=== PATIENT | male | born 1950 | race Hispanic/Latino ===

== ENCOUNTER → 2025-01-25 11:42 | Outpatient (CLI) | payer MEDICARE, SELFPAY ==
--- NOTE | 2025-01-25 11:46 | DI.MRI.S_ITS ---
PROCEDURE: MR LUMBAR SPINE WO CON INDICATIONS: lumbar radiculopathy TECHNIQUE: Noncontrast sagittal T1 spin echo and T2 fast echo, sagittal STIR, and T2 fast spin echo through the lumbar spine. In cases with scoliosis, additional coronal T2 fast spin echo may be performed. COMPARISON: None. FINDINGS: Image quality: Excellent. Alignment and Curvature: There is normal bony alignment. Bone Marrow: Type 1 Modic changes at L5-S1. No acute vertebral body compression fractures. Spinal Cord: Conus medullaris terminates at the L2 level. Visualized cord demonstrates normal signal and size. Paraspinous Soft Tissues: No paravertebral masses. T12-L1: Normal appearance. L1-L2: Mild disc bulge. No spinal canal or foraminal stenosis. L2-L3: Posterior disc bulge and mild facet hypertrophy with mild spinal canal stenosis moderate right and mild left neural foraminal stenosis. L3-L4: Posterior disc bulge and facet hypertrophy with moderate bilateral neural foraminal stenosis and mild spinal canal stenosis. L4-L5: Posterior disc bulge and facet hypertrophy with moderate bilateral foraminal stenosis and mild spinal canal stenosis. L5-S1: Grade 1 anterolisthesis with bilateral L5 pars defects. Complete intervertebral disc height loss with grade 1 with Modic 1 end-plate changes. Pseudo disc bulge and facet hypertrophy with severe bilateral foraminal stenosis and mild spinal canal stenosis. IMPRESSION: Multilevel degenerative changes, most severe at L5-S1 where there is grade 1 anterolisthesis and bilateral pars defects with resultant severe bilateral neural foraminal stenosis. Dictated by: Gm Ricketts M.D. on 01/25/2025 at 14:31 Approved by: Gm Ricketts M.D. on 01/25/2025 at 14:47
== END ==
LOC: MRI 11:46
PROVIDERS: PCP Family Medicine; Referring Provider Orthopaedic Surgery Foot and Ankle Surgery; Visit Provider Orthopaedic Surgery Foot and Ankle Surgery
DX: M47.26 Other spondylosis with radiculopathy, lumbar region (principal); M47.27 Other spondylosis with radiculopathy, lumbosacral region; M51.16 Intervertebral disc disorders with radiculopathy, lumbar region; M51.17 Intervertebral disc disorders with radiculopathy, lumbosacral region; M48.061 Spinal stenosis, lumbar region without neurogenic claudication; M48.07 Spinal stenosis, lumbosacral region; M43.17 Spondylolisthesis, lumbosacral region
CPT/HCPCS: 72148